=== PATIENT | female | born 1980 | race Asian ===

== ENCOUNTER 2019-06-04 22:02 | Emergency (ER) | payer OTHER ==
[2019-06-04] MEDS: KETOROLAC 15 MG INJ IM (23:02)
== END 2019-06-04 23:53 | disposition home or self-care (01) ==
LOC: FTE 22:02
DX: E13.49 Other specified diabetes mellitus with other diabetic neurological complication (principal); I10 Essential (primary) hypertension; Z86.73 Personal history of transient ischemic attack (TIA), and cerebral infarction without residual deficits
CPT/HCPCS: 82962; 96372; 99284-25